=== PATIENT | male | born 1975 | race Caucasian/White ===

== ENCOUNTER 2023-12-29 00:26 | Emergency (ER) | payer OTHER ==
[2023-12-29 01:04] VITALS: BP 125/79; PULSE 67; RESP 20; TEMP 98.6; BMI 30.7
[2023-12-29 02:19] LABS: EPI CELLS 5 /uL (0-25.1); HYALINE CASTS 0 /uL (0-3.1); URINE APPEARANCE CLEAR; URINE BACTERIA 0 /uL (0-1359); URINE BILIRUBIN NEGATIVE (NEGATIVE); URINE COLOR YELLOW; URINE GLUCOSE (UA) NEGATIVE (NEGATIVE); URINE KETONE NEGATIVE (NEGATIVE); URINE LEUK ESTERASE NEGATIVE (NEGATIVE); URINE NITRITE NEGATIVE (NEGATIVE); URINE PROTEIN NEGATIVE (NEGATIVE); URINE RBC 154 /uL (0-23.9); URINE WBC 4 /uL (0-25.8)
[2023-12-29 03:18] LABS: BASO % 0.7 % (0-2.0); EOS % 2.4 % (0-4.5); HEMATOCRIT 44.7 % (35.4-49); HEMOGLOBIN 15.1 GM/dL (11.7-16.9); LYMPH % 31.6 % (8-40); MCH 32.8 pg (25.7-33.7); MCHC 33.8 g/dl (32.0-35.9); MEAN CELL VOLUME 97.2 fl (80-96); MEAN PLT VOLUME 9.2 fl (7.5-11.1); MONO % 6.6 % (3.8-10.2); NEUT % 58.7 % (42.8-82.8); PLATELET COUNT 148 10^3/uL (134-434); RDW 13.1 % (11.9-15.9); WHITE BLOOD COUNT 5.8 K/mm3 (4.0-10.0)
[2023-12-29 03:44] LABS: POTASSIUM 3.8 mmol/L (3.5-5.1)
[2023-12-29 03:46] LABS: ALBUMIN 3.9 g/dl (3.4-5.0); BLOOD UREA NITROGEN 13.4 mg/dL (7-18); CALCIUM 8.8 mg/dL (8.5-10.1)
[2023-12-29 03:49] LABS: CREATININE 0.7 mg/dL (0.55-1.3)
[2023-12-29 03:51] LABS: BILIRUBIN,TOTAL 0.7 mg/dL (0.2-1); TOT PROT 7.2 g/dl (6.4-8.2)
== END 2023-12-29 07:00 | disposition home or self-care (01) ==
LOC: JER 00:26
DX: R31.9 Hematuria, unspecified (principal); N20.0 Calculus of kidney
CPT/HCPCS: 36415; 74177-TC; 76856-TC; 80053; 81003; 85025; 87086; 99285-25; Q9967